=== PATIENT | male | born 1965 | race Hispanic/Latino ===

== ENCOUNTER → 2020-10-02 | Day surgery (SDC) | payer OTHER ==
[2020-09-27 14:47] LABS: BASOPHILS # (AUTO) 0.1 (0.0-0.1); BASOPHILS % 0.5 % (0.0-1.0); EOSINOPHILS # (AUTO) 0.3 (0.0-0.4); EOSINOPHILS % 2.5 % (0.0-6.0); HEMATOCRIT 39.1 % (38.2-49.6); HEMOGLOBIN 13.3 g/dL (14.0-18.0); LYMPHOCYTES # (AUTO) 2.9 (1.0-3.2); LYMPHOCYTES % 26.3 % (18.0-39.1); MEAN CORPUSCULAR HEMOGLOBIN 30.4 pg (28-32); MEAN CORPUSCULAR VOLUME 89.5 fL (81-99); MONOCYTES # (AUTO) 0.7 (0.2-0.8); MONOCYTES % 6.6 % (4.4-11.3); NEUTROPHILS % 63.6 % (38.7-80.0); PLATELET COUNT 265 x10e3/uL (140-360); RED BLOOD COUNT 4.37 x10e6/uL (4.3-5.7); RED CELL DISTRIBUTION WIDTH 12.8 % (11.7-14.4)
[2020-09-27 15:13] LABS: ALANINE AMINOTRANSFERASE 18 IU/L (0-55); ALBUMIN 4.2 g/dL (3.5-5.0); ALBUMIN/GLOBULIN RATIO 1.1 (0.8-2.0); ALKALINE PHOSPHATASE 60 IU/L (40-150); ANION GAP 13.5 mmol/L (8-16); BLOOD UREA NITROGEN 18 mg/dL (7-26); BUN/CREATININE RATIO 17 (6-25); CALCIUM 9.9 mg/dL (8.4-10.2); CARBON DIOXIDE 27 mmol/L (22-29); CHLORIDE 102 mmol/L (98-107); CREATININE, SERUM 1.04 mg/dL (0.72-1.25); EST GLOMERULAR FILTRATION RATE > 60 ML/MIN (60-); GLUCOSE 93 mg/dL (74-118); POTASSIUM 4.5 mmol/L (3.5-5.1); SODIUM 138 mmol/L (136-145)
[~2020-10-02] VITALS: Ht 172.7 cm; Wt 115.7 kg
[2020-10-02] VITALS (13 sets, daily range): BP systolic 99–148; BP diastolic 63–77
[~2020-10-02] MED LIST: ALPRAZOLAM 0.5 MG TAB ONE; AMLODIPINE BESY10 MG PO; ASPIRIN 325 MG TAB ONE; ATORVASTATIN CA10 MG PO; BIVALRIUDIN 250 MG/VIAL VIAL IV ONE; CHLORTHALIDONE50 MG PO; DIPHENHYDRAMINE HCL 25 MG CAP ONE; FENTANYL CITRATE/PF 100MCG/2 ML INJ ONE; HEPARIN SOD (PORCINE) 1000 UNIT/ML 30ML ONE; HEPARIN SOD/SOD CHLORIDE 2,000 ML ONE; IOPAMIDOL 370 MG/ML 200 ML INFUS..BTL INJ ONE; LIDOCAINE HCL 2% LOCAL 20 ML VIAL ONE; METFORMIN HCL500 MG PO; MIDAZOLAM HCL 2 MG/2 ML VIAL ONE; NITROGLYCERIN/D5W 200 MCG/ML 250 ML ONE; PRASUGREL 10 MG TAB ONE; SODIUM CHLORIDE 0.9% 1000ML 1,000 ML ONE; SODIUM CHLORIDE 0.9% 50ML 50 ML ONE; VERAPAMIL HCL 2.5 MG/ML 2 ML VIAL ONE
--- NOTE | 2020-10-02 10:53 | NUR ---
1053am Report received from Jack.Rn Alert oriented and appropriate, PERRLA, respirations even and unlabored to room air. Pulses x4 extremities equal and palpable . Cap fill brisk < 3 sec. + neurovascular function of right wrist/hand w/ TR Band present. No s/s of swelling or discolor at site. VS trend reviewed and medications given.TR band down at 1300pm. Skin warm and dry integrity appears intact in general. IV left hand presents healthy w/o s/s of infiltration or complaint. Angiomax till complete. Abdomen soft and supple. pt offered toileting, denies need to urinate or defecate. Resting with HOB elevated approx 30o. Personal affects with patient. Pt verbalizes understanding of POC. 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 bed low and locked, side rails up x2 and call light at side, pt using personal mask for COVID-19 mitigation. Potential dc time 1530pm.
--- NOTE | 2020-10-02 11:42 | Operative Report ---
DATE OF PROCEDURE: 10/02/2020 SURGEON: Manas Mario MD INDICATIONS: Coronary artery disease, angina, abnormal stress test. PROCEDURES PERFORMED: 1. Ultrasound-guided access in the right radial artery with sheath placement. 2. Left heart catheterization, selective coronary angiography. 3. Conscious sedation, 65 minutes. 4. Deployment of right posterior descending artery stent and coronary intervention. 5. Deployment of right wrist TR band. COMPLICATIONS: None. RECOMMENDATIONS: Medical therapy. DESCRIPTION OF PROCEDURE: Access was obtained in the right radial artery using ultrasound guidance. A 6-[place] sheath was placed. The patient received intravenous prasugrel and aspirin for anticoagulation. Left main, minimal 20% to 30% stenosis. Left anterior descending artery and circumflex had mild disease. Right coronary artery had mild disease. Right posterior descending artery, focal 80% proximal stenosis. LV end-diastolic pressure of 10. No gradient across the aortic valve on pullback. A decision was made to intervene on the right posterior descending artery. The patient received intravenous Angiomax for anticoagulation. The right coronary artery was cannulated using a 5-[place] M radial guiding catheter. Short Runthrough wire was advanced for support. A single 2.0 x 12 mm Resolute stent was deployed at 14 atmospheres. Excellent end result, less than 10% residual stenosis, LESLIE-3 flow. No complications. Wire and guide sheath removed. TR band applied. The patient discharged home the same day. Manas Mario MD [facility] /[id number]
--- NOTE | 2020-10-02 13:00 | NUR ---
1300p RADIAL Compression removal: Initial Cuff volume 13cc 1300p -3cc Removed No hematoma/bleeding noted with normal neurovascular function. 1315p -5cc Removed No hematoma/ bleeding noted with normal neurovascular function. 1330p -5cc Removed No hematoma/bleeding noted with normal neurovascular function. Air removal completed. Stasis achieved sterile 2x2,Tegaderm, Coban dressing No hematoma, bleeding noted with normal neurovascular function. Pt instructed on POC. Ds/Rn
--- NOTE | 2020-10-02 15:30 | NUR ---
1530p RT -TRBAND Pt meets discharge criteria. VS wnl, alert and oriented. Pt and Family Understands discharge instruction. Overall general assess w/o gross outliers. Skin warm, dry, and intact. Right radial dressing soft w/o s/s of hematoma. + neurovascular function of right hand present. IV removed and appears distal tip is intact, Boy staff midwife member verifying. Pt maintains mask on for COVID 19 precautions being taken by wheel chair to awaiting car. Transfers w/o gross distress with discharge paperwork in hand.-ds/rn
== END | disposition home or self-care (01) ==
LOC: CATH LAB 11:15
PROVIDERS: ATTEND Internal Medicine Interventional Cardiology
DX: I25.118 Atherosclerotic heart disease of native coronary artery with other forms of angina pectoris (principal); I87.2 Venous insufficiency (chronic) (peripheral); I10 Essential (primary) hypertension; E11.9 Type 2 diabetes mellitus without complications; Z01.812 Encounter for preprocedural laboratory examination; Z20.828 Contact with and (suspected) exposure to other viral communicable diseases; Z79.84 Long term (current) use of oral hypoglycemic drugs; Z68.38 Body mass index [BMI] 38.0-38.9, adult; Z82.49 Family history of ischemic heart disease and other diseases of the circulatory system
CPT/HCPCS: 36415; 76937; 80053; 85025; 92928; 93458; C1769; C1876; C1887 ×2; J0583; J1644; J2001; J2250; J3010; J7030; Q9967; U0002; 99152; 99153